=== PATIENT | female | born 1985 | race Caucasian/White ===

== ENCOUNTER → 2024-02-20 13:18 | Outpatient (REF) | payer BC, SELFPAY | LOC: RAD 13:18 | PROVIDERS: ATTENDING PHYSICIAN Obstetrics & Gynecology; FAMILY PHYSICIAN Family Medicine | DX: Z31.41 Encounter for fertility testing (principal) | CPT/HCPCS: 58340; 74740 ==

== ENCOUNTER → 2024-11-27 13:48 | Outpatient (REF) | payer BC, SELFPAY | LOC: DHSLP 13:48 | PROVIDERS: ATTENDING PHYSICIAN Internal Medicine | DX: G47.33 Obstructive sleep apnea (adult) (pediatric) (principal) | CPT/HCPCS: 95800 ==